=== PATIENT | female | born 1950 | race Hispanic/Latino ===

== ENCOUNTER 2017-07-11 20:39 | Emergency (ER) | payer MEDICARE ==
[2017-07-11 21:21] LABS: #Basophils 0.1 thou/uL (0.0-0.2); #Eosinphils 0.2 thou/uL (0.0-0.7); #Monocytes 0.6 thou/uL (0.11-0.59); %Basophils 1.3 % (0.0-1.0); %Eosinophils 4.4 % (0.0-10.0); %Monocytes 12.6 % (0.0-10.0); Mean Platelet Volume 6.6 fL (7.4-10.4); Red Blood Cell (RBC) Count 4.51 mill/uL (4.20-5.40)
[2017-07-11 21:39] LABS: ALT (SGPT) 15 U/L (8-55); AST (SGOT) 19 U/L (5-34); Alkaline Phosphatase 89 U/L (40-150); Anion Gap 12 mmol/L (10-20); BUN (Urea Nitrogen) 8 mg/dL (9.8-20.1); Bilirubin, Total 0.5 mg/dL (0.2-1.2); Calc. Creatinine Clearance 0 mL/min (70-130); Calcium 9.1 mg/dL (7.8-10.44); Carbon Dioxide 27 mmol/L (23-31); Chloride 106 mmol/L (98-107); Estimated GFR-MDRD 82; Globulin 3.1 g/dL (2.4-3.5); Lipase 18 U/L (8-78)
[2017-07-11] MEDS ORDERED: Ondansetron HCl/PF 4 MG/2 ML Vial ONE (21:58)
[2017-07-11 22:03] LABS: Bilirubin Negative (Negative); Blood, Urine Negative (Negative); Glucose, Urine (Dipstick) Negative (Negative); Ketone, Urine Negative (Negative); Nitrite Negative (Negative); Protein, Urine (Dipstick) Negative (Neg-Trace); Urobilinogen 0.2 mg/dL (0.2-1.0)
== END 2017-07-11 23:47 | disposition home or self-care (01) ==
LOC: ERS 20:39
DX: A09 Infectious gastroenteritis and colitis, unspecified (principal); F32.9 Major depressive disorder, single episode, unspecified; F41.9 Anxiety disorder, unspecified; Z79.899 Other long term (current) drug therapy
CPT/HCPCS: 36415; 80053; 81003; 83690; 85025; 96361; 96374; J2405

== ENCOUNTER 2018-06-29 06:13 | Day surgery (SDC) | payer MEDICARE ==
[2018-06-28 11:00] VITALS: BMI 22.1
[2018-06-29] MEDS ORDERED: CEFAZOLIN/Water 2 GM/20 ML SYRINGE ONE (06:59)
[2018-06-29] MEDS ORDERED: Fentanyl 250 MCG/5 ML VIAL ONE (07:02)
[2018-06-29 07:08] LABS: #Eosinphils 0.3 thou/uL (0.0-0.7); #Lymphocytes 1.4 thou/uL (1.20-3.40); #Monocytes 0.4 thou/uL (0.11-0.59); #Neutrophils 4.7 thou/uL (1.40-6.50); %Basophils 0.4 % (0.0-1.0); %Eosinophils 3.8 % (0.0-10.0); %Lymphocytes 20.5 % (21.0-51.0); %Monocytes 6.1 % (0.0-10.0); %Neutrophils 69.2 % (42.0-75.0); Hemoglobin 12.8 g/dL (12.0-16.0); Mean Corpuscular HGB CONC 33.6 g/dL (32.0-36.0); Mean Corpuscular Hemoglobin 31.3 pg (27.0-31.0); Mean Corpuscular Volume 93.1 fL (78.0-98.0); Mean Platelet Volume 6.8 fL (7.4-10.4); Platelet Count 341 thou/uL (130-400); RBC Distribution Width 12.6 % (11.5-14.5); Red Blood Cell (RBC) Count 4.11 mill/uL (4.20-5.40); White Blood Cell (WBC) Count 6.8 thou/uL (4.8-10.8)
[2018-06-29] MEDS ORDERED: Bacitracin Zinc Ointment 30 gm TUBE ONE (07:19)
[2018-06-29] MEDS ORDERED: Bupivacaine/Epinephrine 0.25% 30 ML VIAL ONE (07:19)
[2018-06-29] MEDS ORDERED: Lidocaine 2% PF Inj 2 ML VIAL ONE (07:19)
[2018-06-29] MEDS ORDERED: Midazolam HCl 2 mg/2 ml Vial ONE (07:32)
--- NOTE | 2018-06-29 14:43 | PDOC.OP ---
Operative Note - Operative Note Operative Note: PROCEDURE: Excision of right back lipoma DATE OF PROCEDURE: 06/29/28 SURGEON: Padmaja Olivier M.D. PREOPERATIVE DIAGNOSES: Right back lipoma POSTOPERATIVE DIAGNOSIS: Right back lipoma HISTORY: Patient with slowly growing subcutaneous mass of her right back which has become increasingly symptomatic recently. She would like to have this excised for symptomatic and diagnostic purposes. PROCEDURE IN DETAIL: After informed consent was obtained and appropriate preoperative antibiotics administered the patient was taken to the operating room she was placed in supine position and anesthesia was administered. She was then placed in the left lateral decubitus position with appropriate padding of her extremities. She was prepped and draped in the standard sterile fashion and local anesthesia infused circumferentially a oblique skin incision was made in the direction of Langerhans' lines along the long axis of the mass. The patient was found to have a lobulated minimally encapsulated lipoma extending down to the muscle. This was dissected free circumferentially and excised. It measured 10 cm in longest diameter. It was marked with orientation with a long lateral and short superior and looped superficial suture. Wound was irrigated for hemostasis which was obtained using Bovie electrocautery. The subcutaneous tissues had been pushed laterally by the mass and could not be reapproximated. A drain was placed exiting anteriorly and inferiorly and secured to the skin. This was placed within the subcutaneous space and the subcutaneous tissues underlying the skin incision were reapproximated with a running 30 absorbable suture. The skin was closed with a 4-0 running subcutaneous cuticular Monocryl suture and Dermabond dressing was placed to the incision. A gauze and Tegaderm dressing was placed at the drain site. The patient was extubated and taken to recovery in good condition. Estimated blood loss was minimal. There were no complications. Specimen is lipoma.
[2018-06-29] MEDS ORDERED: Lidocaine 1% PF 5 ML VIAL ONE (15:42)
[2018-06-29] MEDS ORDERED: ePHEDrine/0.9% NaCl/PF SYRINGE 50 mg/10 ml ONE (15:42)
[2018-06-29] MEDS ORDERED: Ondansetron HCl/PF 4 MG/2 ML Vial ONE (15:42)
[2018-06-29] MEDS ORDERED: PHENYLEPHRINE-NS 100 MCG/ML 10 ML SYRINGE ONE (15:42)
[2018-06-29] MEDS ORDERED: Dexamethasone 20 MG/5 ML VIAL ONE (15:42)
[2018-06-29] MEDS ORDERED: PROPOFOL 200 MG/20 ML VIAL ONE (15:42)
[2018-06-29] MEDS ORDERED: Glycopyrrolate 0.2 MG/ML 5 ML SYRINGE ONE (15:42)
--- NOTE | 2018-07-10 05:43 | PQF ---
[facility] POST DISCHARGE CLINICAL DOCUMENTATION IMPROVEMENT CLARIFICATION FORM l Todays Date: 07/03/18 l Patients Name BRIGHT RUTH l l Admit Date 06/29/18 l Disch Date 06/29/18 [employer] Specialist Name Arya Kaiser Email: [email or web address]: [phone] Present Clinical Indicators - Signs / Symptoms Results and Location in Medical Record [ ] Documentation of: [ ] [ ] Documentation of: [ ] [ ] Documentation of: [ ] [ ] Documentation of: [ ] [ ] Risks [ ] [ ] [ ] Treatment [ ] RIGHT FLANK LIPOMA Kindly specify size of excised Lipoma with adequate margins in Operative report. [ ] [ ] To be completed by Physician: KAREN VERAS The documentation in this patients record requires clarification to ensure coding compliance and accuracy. Check the appropriate box and include in your discharge summary. [ ] [ ] [ ] [ ] Please check this box if this does not apply to this patient [ ] Unable to determine [ ] Other diagnosis: Review the following information and exercise your independent professional judgment in responding to the clarification. Based upon the clinical findings, risk factors, and treatment, please clarify if you are treating one of the above probable or suspected diagnoses. Physician Signature: Date Time MTDD
== END 2018-06-29 11:46 | disposition home or self-care (01) ==
LOC: SDC 06:13
PROVIDERS: ATTEND Surgery
PROC: 0JB70ZZ Excision of Back Subcutaneous Tissue and Fascia, Open Approach (ICD-10-PCS; principal; 2018-06-29)
DX: D17.1 Benign lipomatous neoplasm of skin and subcutaneous tissue of trunk (principal); F41.9 Anxiety disorder, unspecified; M19.90 Unspecified osteoarthritis, unspecified site; G43.909 Migraine, unspecified, not intractable, without status migrainosus; M34.1 CR(E)ST syndrome; C88.4 Extranodal marginal zone B-cell lymphoma of mucosa-associated lymphoid tissue [MALT-lymphoma]; Z79.1 Long term (current) use of non-steroidal anti-inflammatories (NSAID); Z79.899 Other long term (current) drug therapy; Z88.8 Allergy status to other drugs, medicaments and biological substances; Z88.1 Allergy status to other antibiotic agents; Z88.6 Allergy status to analgesic agent
CPT/HCPCS: 36415; 85025; 88304; J1100; J2001; J2250; J2405; J2704; J3010

== ENCOUNTER 2019-07-19 08:30 | Outpatient (CLI) | payer MEDICARE ==
--- NOTE | 2019-07-19 11:25 | CT ---
CT ABDOMEN AND PELVIS WITH IV CONTRAST: Date: 07/19/19 PROVIDED CLINICAL HISTORY: Weight loss, diarrhea, and abdominal pain. FINDINGS: Comparison made with the study dated 08/28/15. Pneumatoceles involving each lung base are stable compared with prior with associated stable noncalci fied nodular density at the inferior aspect of the left basilar pneumatocele. The lungs are free of s ignificant opacity as visualized. The liver, spleen, pancreas, kidneys, and adrenal glands demonstrate an unremarkable CT appearance. There is no bowel dilatation, inflammatory fat stranding, free fluid, or lymph node enlargement appar ent. The uterus is not visualized and presumed surgically absent. Scattered vascular calcifications are se en. The osseous structures demonstrate no concerning osteoblastic or osteolytic lesions. IMPRESSION: No evidence for an acute process. POS: OFF
== END 2019-07-19 08:31 | disposition home or self-care (01) ==
LOC: BICCT 08:30
PROVIDERS: ATTEND Physician Assistant Medical
DX: K52.9 Noninfective gastroenteritis and colitis, unspecified (principal); R63.4 Abnormal weight loss; R10.9 Unspecified abdominal pain
CPT/HCPCS: 74177; 82565

== ENCOUNTER 2019-09-09 10:31 | Outpatient (CLI) | payer MEDICARE ==
--- NOTE | 2019-09-09 10:42 | RAD ---
XR Chest Pa Lat STANDARD History: Cough Comparison: Radiograph 2017 Findings: The lungs are hyperinflated. Mild scarring in the lung bases. No pneumothorax. No significa nt effusion. No acute osseous abnormality. Cardiac silhouette and mediastinal contours are similar. Impression: Unchanged exam. No acute intrathoracic abnormality.
== END 2019-09-09 10:32 | disposition home or self-care (01) ==
LOC: RAD-FRANK 10:31
PROVIDERS: ATTEND Nurse Practitioner Family
DX: R50.9 Fever, unspecified (principal); R05 Cough
CPT/HCPCS: 71046

== ENCOUNTER 2019-11-26 07:06 | Day surgery (SDC) | payer MEDICARE ==
--- NOTE | 2019-11-25 10:57 | HP ---
She is scheduled for surgery on 11/26/2019. HISTORY OF PRESENT ILLNESS: Ms. Browning is a 69-year-old Latin-[place] female with prior hysterectomy and bilateral salpingo-oophorectomy for endometrial cancer over 5 years ago. She also received adjunctive pelvic radiation at that time. She presented to my office on October 29, complaining of pelvic prolapse symptoms of vaginal bulge and pressure. These are aggravated with prolonged standing or very uncomfortable to her. She was offered a pessary device, but is chosen to proceed with surgical repair. PAST MEDICAL HISTORY: Significant for chronic hypertension and reflux and hyperlipidemia. PAST SURGICAL HISTORY: As noted, SHOLA-BSO with adjuvant radiation in the past for uterine cancer. She also has chronic back pain for which she takes cyclobenzaprine muscle relaxer. FAMILY HISTORY: Noncontributory. SOCIAL HISTORY: Nonsmoker. No excessive alcohol use or drug use. CURRENT MEDICATIONS: 1. Amlodipine 2.5 mg daily. 2. Colestipol 1 g tablet daily. 3. Cyclobenzaprine 5 mg tablet as needed. 4. Estrogen vaginal cream 1 g twice weekly. 5. Started Intrarosa for vaginal atrophy. ALLERGIES: DEXTRA, CELEBREX, ASPIRIN, GENTAMICIN, AND VIOXX. OB HISTORY: G3, P2, A1, two vaginal deliveries. PHYSICAL EXAMINATION: VITAL SIGNS: Blood pressure is 108/64. Height is 5 feet 3 inches, weight 124, and BMI 22. Pulse is regular at 63, respiratory rate is 16, and O2 saturation on room air 99%. HEENT: Within normal limits. CHEST: Clear to auscultation. HEART: Regular rate and rhythm. S1 and S2 heart sounds. No murmurs, rubs, or gallops. ABDOMEN: Soft, nontender, and nondistended. Well-healed midline incision from prior hysterectomy. PELVIC: Vulva and vagina had no lesions. She does have a grade 2 and grade 3 cystocele and rectocele. The upper cuff appeared supported adequately with no lesion seen. No pelvic masses or parametrial masses were noted. ASSESSMENT: This is a 69-year-old Latin-[place] female with symptomatic grade 2 rectocele and cystocele. PLAN: For anterior and posterior repair scheduled for 11/26/2019. Risks and benefits of surgery were discussed in detail and she is set for surgery. Job ID: [id number]
[2019-11-25 11:00] VITALS: BMI 21.9
[2019-11-25 11:48] LABS: Hemoglobin 13.8 g/dL (12.0-16.0); Mean Corpuscular HGB CONC 34.6 g/dL (32.0-36.0); Mean Corpuscular Hemoglobin 31.1 pg (27.0-31.0); Mean Corpuscular Volume 89.9 fL (78.0-98.0); Mean Platelet Volume 7.4 fL (7.4-10.4); Platelet Count 272 thou/uL (130-400); RBC Distribution Width 11.6 % (11.5-14.5); Red Blood Cell (RBC) Count 4.45 mill/uL (4.20-5.40); White Blood Cell (WBC) Count 6.1 thou/uL (4.8-10.8)
[2019-11-26] MEDS ORDERED: Famotidine/PF 20 mg/2ml Vial ONE (07:23)
[2019-11-26] MEDS ORDERED: Gabapentin 300 MG CAP ONE (07:23)
[2019-11-26] MEDS ORDERED: Fentanyl 100 MCG/2 ML VIAL ONE (10:29)
[2019-11-26] MEDS ORDERED: Lidocaine 1% w/Epinephrine 1:100K 20 ML VIAL ONE (10:32)
[2019-11-26] MEDS ORDERED: PROPOFOL 200 MG/20 ML VIAL ONE (10:36)
[2019-11-26] MEDS ORDERED: Ondansetron PF 4 MG/2 ML Vial ONE (10:36)
[2019-11-26] MEDS ORDERED: Lidocaine 1% PF 5 ML VIAL ONE (10:36)
[2019-11-26] MEDS ORDERED: EPHEDRINE 25 MG/5 ML SYRINGE ONE (10:36)
[2019-11-26] MEDS ORDERED: Dexamethasone 20 MG/5 ML VIAL ONE (10:36)
[2019-11-26] MEDS ORDERED: Morphine 2 MG/ML SYRINGE SLOW IVP PRN (13:56)
[2019-11-26] MEDS ORDERED: Ondansetron PF 4 MG/2 ML Vial IVP PRN (13:56)
[2019-11-26] MEDS ORDERED: Simethicone Chewable 80 MG TAB PO PRN (13:56)
[2019-11-26] MEDS ORDERED: Zolpidem Tartrate 5 MG TAB PO PRN (13:56)
--- NOTE | 2019-11-26 15:48 | OP ---
DATE OF PROCEDURE: 11/26/2019 PREOPERATIVE DIAGNOSES: 1. A 69-year-old Latin-[place]oz[place] female, prior total abdominal hysterectomy bilateral salpingo-oophorectomy for uterine cancer. 2. Symptomatic grade 2 rectocele and cystocele. POSTOPERATIVE DIAGNOSES: 1. A 69-year-old Latin-[place]oz[place] female, prior total abdominal hysterectomy bilateral salpingo-oophorectomy for uterine cancer. 2. Symptomatic grade 2 rectocele and cystocele. In addition, appeared to have some degree of rectal mucosal prolapse through the anus in a relax anesthetic state. PROCEDURE PERFORMED: Anterior and posterior repair. ANESTHESIA: General endotracheal. CALL CENTER MANAGER SURGEON: Madison Johns PA-C ESTIMATED BLOOD LOSS: 10 mL. COMPLICATIONS: None. COUNTS: Correct x2. ANTIBIOTICS: 2 g Ancef on-call to OR. FINDINGS: 1. Appeared to have a grade 2 cystocele and rectocele with some rectal mucosal prolapse through the anal opening noted in a relaxed state. 2. No apparent suture placement through the rectal mucosa during the procedure and post procedure rectal exam. 3. Clear urine present in Maki catheter postprocedure. DISPOSITION: Recovery room, stable. DESCRIPTION OF PROCEDURE: The patient previously received informed consent in regard to surgery. She was taken back to the operating room, where she received a general endotracheal anesthetic agent without complications. She was placed in the dorsal lithotomy position with Garcia stirrups, prepped and draped in usual sterile fashion. Maki catheter was placed at this time. A weighted speculum was placed in the vagina. The cystocele was noted. The rectal prolapse was also noted. The anterior vaginal mucosa was infiltrated with 1% lidocaine with epinephrine. Allis clamps were placed in the opening of the anterior vaginal mucosa near the cuff line and this was incised. The vaginal mucosa was incised vertical direction to about 1.5 cm from the urethral meatus. The edges of the vaginal mucosa were grasped with Allis clamps and this enabled for dissection endopelvic fascia which somewhat attenuated reducing the cystocele. Once the cystocele hernia was reduced, the anterior endopelvic fascia was plicated with interrupted 2-0 Vicryl suture, reducing the cystocele. The anterior vaginal mucosa was then closed with interrupted [id number] sutures securing hemostasis. The posterior repair was then performed. The posterior vaginal mucosa was infiltrated and either dissected with 1% lidocaine with epinephrine. Two Allis clamps were placed at the 4 and 8 o'clock position in the vaginal introitus. The vaginal mucosa posteriorly was incised with Metzenbaum scissors, carried to the vaginal cuff line. The edges of the vaginal mucosa again were grasped with Allis clamps for counter traction, dissecting the rectum in the endopelvic fascia, reducing the rectocele defect. The endopelvic fascia was also somewhat attenuated in this area. The endopelvic fascia was then plicated starting most cephalad into the endopelvic fascia, then grasping the patient's left side and the patient's right side. A rectal exam was performed during the placement of the sutures to ensure that these were not incorporated in the rectal mucosa due to the attenuated findings of the endopelvic fascia. Several interrupted [id number] stitches were placed in this technique working cephalad towards the introitus, repairing the rectocele defect. Once this was accomplished and hemostasis was confirmed, the posterior vaginal mucosa was then closed with interrupted [id number] stitches starting most cephalad out towards the introitus, incorporating some of the endopelvic fascia. The rectal exam was reexamined and no evidence of any suture placement through the rectal mucosa. The edges of the suture lines were hemostatic. The patient was then awakened from anesthesia, transferred to recovery room in stable condition. Job ID: [id number]
[2019-11-26] MEDS: Lactated Ringer's 1,000 ML IV SCH ×2 (17:13→22:28)
[2019-11-26] MEDS: Acetaminophen 325 MG TAB PO PRN ×2 (19:21→22:17)
[2019-11-26] MEDS: traMADol HCl 50 MG TAB PO PRN (19:22)
[2019-11-27] MEDS: traMADol HCl 50 MG TAB PO PRN ×2 (00:38→08:43)
[2019-11-27 02:03] VITALS: TEMP 97.7
[2019-11-27] MEDS: Lactated Ringer's 1,000 ML IV SCH (07:10)
[2019-11-27 08:08] VITALS: BP 111/53
[2019-11-27] MEDS ORDERED: Ondansetron ODT 4 MG TAB PO SCH (10:00)
--- NOTE | 2019-11-27 11:44 | DIS ---
DATE OF ADMISSION: 11/26/2019 DATE OF DISCHARGE: 11/27/2019 DATE OF SURGERY: 11/26/2019. DIAGNOSES: 1. Symptomatic grade 2 cystocele and rectocele. 2. Prior hysterectomy for uterine cancer with radiation therapy in the past. PROCEDURE PERFORMED: Anterior and posterior repair. SUMMARY OF HOSPITAL COURSE: Ms. Browning underwent an anterior and posterior repair on 11/26. Postoperatively, she has done well. She is ambulating and voiding without difficulty at the evening of the surgery. Vital signs remained stable. She is tolerating regular diet and had adequate pain control with oral medication. She was discharged home in the morning of postop day #1 with followup scheduled on December 19. Discharge medications will be [id number] Tylenol, Motrin as needed, and a prescription for tramadol 50 mg q.6 hours p.r.n. pain has been called out to her pharmacy of choice, which is [facility]. Job ID: [id number]
== END 2019-11-27 10:05 | disposition home or self-care (01) ==
LOC: SDC 07:06 → 3SE 12:06 → SDC 11-27 10:05
PROVIDERS: ATTEND Obstetrics & Gynecology
PROC: 0JQC0ZZ Repair Pelvic Region Subcutaneous Tissue and Fascia, Open Approach (ICD-10-PCS; principal; 2019-11-26)
PROC: 0JQC0ZZ Repair Pelvic Region Subcutaneous Tissue and Fascia, Open Approach (ICD-10-PCS; 2019-11-26)
DX: N81.6 Rectocele (principal); N81.10 Cystocele, unspecified; I10 Essential (primary) hypertension; E78.5 Hyperlipidemia, unspecified; K21.9 Gastro-esophageal reflux disease without esophagitis; G89.29 Other chronic pain; M54.9 Dorsalgia, unspecified; Z79.899 Other long term (current) drug therapy; Z85.42 Personal history of malignant neoplasm of other parts of uterus; Z88.1 Allergy status to other antibiotic agents; Z88.6 Allergy status to analgesic agent; Z88.8 Allergy status to other drugs, medicaments and biological substances
CPT/HCPCS: 36415; 85027; 86850; 86900; 86901; J0690; J1100; J2001; J2405; J2704; J3010; Q0162; S0028

== ENCOUNTER 2021-02-22 16:11 | Outpatient (CLI) | payer MEDICARE | END 2021-02-22 16:12 | disposition home or self-care (01) | LOC: RAD-FRANK 16:11 | PROVIDERS: ATTEND Nurse Practitioner Family | DX: R50.9 Fever, unspecified (principal); J44.9 Chronic obstructive pulmonary disease, unspecified | CPT/HCPCS: 71046 ==

== ENCOUNTER 2022-03-29 15:48 | Outpatient (CLI) | payer MEDICARE | END 2022-03-29 15:49 | disposition home or self-care (01) | LOC: BICULT 15:48 | PROVIDERS: ATTEND Nurse Practitioner Family | DX: M79.662 Pain in left lower leg (principal) ==

== ENCOUNTER 2022-07-31 17:39 | Emergency (ER) | payer MEDICARE | END 2022-07-31 17:55 | disposition home or self-care (01) | LOC: ERS 17:39 | DX: K02.9 Dental caries, unspecified (principal); Z79.899 Other long term (current) drug therapy | CPT/HCPCS: 99282 ==

== ENCOUNTER 2022-08-17 14:22 | Outpatient (CLI) | payer MEDICARE | END 2022-08-17 14:23 | disposition home or self-care (01) | LOC: RAD-FRANK 14:22 | PROVIDERS: ATTEND Nurse Practitioner Family | DX: M54.2 Cervicalgia (principal); M47.812 Spondylosis without myelopathy or radiculopathy, cervical region; Z98.1 Arthrodesis status | CPT/HCPCS: 72040 ==

== ENCOUNTER 2024-07-10 13:07 | Outpatient (CLI) | payer OTHER | END 2024-07-10 13:08 | disposition home or self-care (01) | LOC: BICMAMMO 13:07 | PROVIDERS: ATTEND Nurse Practitioner Family | DX: Z12.31 Encounter for screening mammogram for malignant neoplasm of breast (principal); Z80.3 Family history of malignant neoplasm of breast; Z85.038 Personal history of other malignant neoplasm of large intestine; Z85.42 Personal history of malignant neoplasm of other parts of uterus | CPT/HCPCS: 77063; 77067 ==

== ENCOUNTER 2024-08-19 09:03 | Outpatient (CLI) | payer OTHER | END 2024-08-19 09:04 | disposition home or self-care (01) | LOC: BICMAMMO 09:03 | DX: M81.0 Age-related osteoporosis without current pathological fracture (principal); M34.9 Systemic sclerosis, unspecified; M34.1 CR(E)ST syndrome; M85.89 Other specified disorders of bone density and structure, multiple sites | CPT/HCPCS: 77080 ==

== ENCOUNTER 2024-10-25 08:50 | Outpatient (CLI) | payer OTHER ==
[2024-10-25] MEDS ORDERED: Iopamidol 370 76% 100 ML VIAL ONE (13:09)
== END 2024-10-25 08:51 | disposition home or self-care (01) ==
LOC: BICCT 08:50
PROVIDERS: ATTEND Nurse Practitioner Family
DX: R91.8 Other nonspecific abnormal finding of lung field (principal); J98.4 Other disorders of lung; I31.39 Other pericardial effusion (noninflammatory); I70.90 Unspecified atherosclerosis
CPT/HCPCS: 36415; 71270; 82565; Q9967